=== PATIENT | male | born 1980 | race Hispanic/Latino ===

== ENCOUNTER → 2019-01-25 | Outpatient (CLI) | payer OTHER ==
--- NOTE | 2019-01-25 10:17 | REP ---
Right ankle four views : There is no fracture or dislocation. Mineralization and joint spaces are normal. There are no calcifications or foreign bodies. Impression: Negative right ankle . Electronically Signed by Jason Greene MD 01/25/2019 10:08 A
== END ==
LOC: M RAD 08:34
PROVIDERS: ATTEND Surgery
DX: S93.401A Sprain of unspecified ligament of right ankle, initial encounter (principal); X58.XXXA Exposure to other specified factors, initial encounter; Y92.89 Other specified places as the place of occurrence of the external cause

== ENCOUNTER → 2019-03-13 | Outpatient (CLI) | payer OTHER ==
--- NOTE | 2019-03-13 10:25 | REP ---
Clinical: Pain with prior trauma Technique: AP, lateral, bilateral oblique views left wrist . Findings: No acute fracture dislocation is appreciated. There is a small well corticated chronic fracture fragment adjacent to the radial styloid. Mild increased sclerosis to the radial surface is also appreciated. No acute fracture dislocation. Impression: Mild chronic and prior traumatic changes Electronically Signed by Rodolfo Palomino MD 03/13/2019 10:17 A
--- NOTE | 2019-03-13 10:51 | REP ---
LEFT ANKLE, FOUR VIEWS: There is no evidence of an acute fracture, dislocation or intrinsic bone disease. IMPRESSION: No fracture or dislocation. Electronically Signed by Jason Lui MD 03/13/2019 03:33 P
== END ==
LOC: M RAD 09:04
PROVIDERS: ATTEND Surgery
DX: S99.912A Unspecified injury of left ankle, initial encounter (principal)